=== PATIENT | male | born 1970 | race Hispanic/Latino ===

== ENCOUNTER 2018-11-03 17:12 | Emergency (ER) | payer OTHER ==
[2018-11-03] MEDS ORDERED: CATAPRES PO ONE (18:50)
--- NOTE | 2018-11-03 19:00 | Emergency Department Report ---
ED General Adult HPI - General Chief complaint: Extremity Injury, Lower Stated complaint: TOE PAIN Time Seen by Provider: 11/03/18 18:17 Source: patient Mode of arrival: Ambulatory Limitations: No Limitations - History of Present Illness Initial comments: Patient is 48 years old male with history of borderline hypertension per patient report. Patient stated that he smashed his left face to with the door and complaining of pain since then. Patient found to have a blood pressure of 233/146. Patient currently denying any headache, chest pain, weakness numbness or tingling sensation. Severity scale (0 -10): 8 - Related Data Home Medications Medication Instructions Recorded Confirmed Last Taken Dapsone 20 mg PO BID 11/03/18 11/03/18 Unknown Omeprazole 20 mg PO DAILY 11/03/18 11/03/18 Unknown Allergies Allergy/AdvReac Type Severity Reaction Status Date / Time Penicillins Allergy Unknown Verified 11/03/18 19:04 ED Review of Systems ROS: Stated complaint: TOE PAIN Other details as noted in HPI Comment: All other systems reviewed and negative Constitutional: denies: chills, fever Respiratory: denies: cough, orthopnea, shortness of breath, SOB with exertion, SOB at rest, wheezing Cardiovascular: denies: chest pain, palpitations, dyspnea on exertion, orthopnea Gastrointestinal: denies: abdominal pain, nausea, vomiting, diarrhea, constipation, hematemesis, melena, hematochezia Genitourinary: denies: urgency, dysuria, frequency, hematuria, discharge Neurological: denies: headache, weakness, numbness, paresthesias, confusion ED Past Medical Hx - Past Medical History Previous Medical History?: No - Surgical History Past Surgical History?: Yes Hx Cholecystectomy: Yes Additional Surgical History: hernia surgery - Social History Smoking Status: Never Smoker Substance Use Type: None - Medications Home Medications: Home Medications Medication Instructions Recorded Confirmed Last Taken Type Dapsone 20 mg PO BID 11/03/18 11/03/18 Unknown History Omeprazole 20 mg PO DAILY 11/03/18 11/03/18 Unknown History ED Physical Exam - General Limitations: No Limitations General appearance: alert, in no apparent distress - Head Head exam: Present: atraumatic, normocephalic, normal inspection - Eye Eye exam: Present: normal appearance, PERRL - ENT ENT exam: Present: normal exam, normal orophraynx, mucous membranes moist - Neck Neck exam: Present: normal inspection, full ROM. Absent: tenderness, meningism us, lymphadenopathy, thyromegaly - Respiratory Respiratory exam: Present: normal lung sounds bilaterally - Cardiovascular Cardiovascular Exam: Present: regular rate, normal rhythm, normal heart sounds - GI/Abdominal GI/Abdominal exam: Present: soft. Absent: distended, tenderness, guarding, rebound, bruit, pulsatile mass - Expanded Lower Extremity Exam Left Foot/Toe exam: Present: tenderness (left fifth toe), ecchymosis. Absent: abrasion, laceration, deformity - Back Exam Back exam: Present: normal inspection, full ROM - Neurological Exam Neurological exam: Present: alert, oriented X3, CN II-XII intact, normal gait, reflexes normal - Psychiatric Psychiatric exam: Present: normal mood - Skin Skin exam: Present: warm, intact, normal color ED Course Vital Signs 11/03/18 11/03/18 11/03/18 18:47 19:15 19:30 Temperature 98.6 F 97.9 F Pulse Rate 98 H 90 81 Respiratory 16 14 7 L Rate Blood Pressure 233/145 195/117 Blood Pressure 219/114 [Left] O2 Sat by Pulse 100 98 97 Oximetry 11/03/18 20:00 Temperature Pulse Rate 86 Respiratory 11 L Rate Blood Pressure 156/106 Blood Pressure [Left] O2 Sat by Pulse 95 Oximetry - Orthopedic Splinting/Casting Injury #1 Side: left Lower Extremity Injury Location: foot Lower Extremity Immobilizer: post-op shoe ED Medical Decision Making - Lab Data Result diagrams: 11/03/18 18:35 11/03/18 18:35 - Radiology Data Radiology results: image reviewed Left fifth mid shaft metatarsal fracture. - Medical Decision Making Patient's blood pressure improved significantly. Patient blood pressure now is 153/101. I will start patient on lisinopril 20 mg and hydrochlorothiazide 25 mg by mouth and advised the patient follow with his primary care physician in the next 2-3 days. Critical care attestation.: If time is entered above; I have spent that time in minutes in the direct care of this critically ill patient, excluding procedure time. ED Disposition Clinical Impression: Malignant hypertension, Metatarsal stress fracture of left foot Disposition: - TO HOME OR SELFCARE Is pt being admited?: No Condition: Stable Instructions: Hypertension (ED), Foot Fracture in Adults (ED) Referrals: OBIEKWE,ONWURA, MD [Primary Care Provider] - 3-5 Days BAYLEE WALDROP MD [Staff Physician] - 3-5 Days
[2018-11-03 19:08] LABS: Basophils # (Auto) 0.1 K/mm3 (0.0-0.1); Basophils % (Auto) 1.2 % (0.0-1.8); Eosinophils # (Auto) 0.2 K/mm3 (0.0-0.4); Eosinophils % (Auto) 2.3 % (0.0-4.3); Hematocrit 41.5 % (35.5-45.6); Hemoglobin 13.8 gm/dl (11.8-15.2); Lymphocytes # (Auto) 1.8 K/mm3 (1.2-5.4); Lymphocytes % (Auto) 26.2 % (13.4-35.0); Mean Corpuscular HGB Conc 33 % (32-34); Mean Corpuscular Volume 76 fl (84-94); Monocytes # (Auto) 0.7 K/mm3 (0.0-0.8); Monocytes % (Auto) 10.6 % (0.0-7.3); Platelet Count 273 K/mm3 (140-440); Red Cell Distribution Width 18.1 % (13.2-15.2)
[2018-11-03 19:19] LABS: BUN/Creatinine Ratio 16; Blood Urea Nitrogen 18 mg/dL (9-20); Calcium 9.2 mg/dL (8.4-10.2); Hemolysis Index 5
[2018-11-03 20:44] VITALS: BP 143/89
--- NOTE | 2018-11-03 21:24 | XRay Report ---
FINAL REPORT EXAM: XRAY TOE LEFT 5TH TOE HISTORY: left 5th toe injury TECHNIQUE: Left foot three views PRIORS: None. FINDINGS: There is an acute traumatic oblique fracture through the distal aspect proximal phalanx of the 5th to e with mild displacement and angulation. Articular surface appears intact. No radiopaque foreign bodi es are observed. Remaining bony structures are unremarkable. IMPRESSION: Acute fracture proximal phalanx 5th toe
== END 2018-11-03 20:47 | disposition home or self-care (01) ==
LOC: ED 17:12
DX: S90.122A Contusion of left lesser toe(s) without damage to nail, initial encounter (principal); I10 Essential (primary) hypertension; Z88.0 Allergy status to penicillin; Z90.49 Acquired absence of other specified parts of digestive tract; W23.1XXA Caught, crushed, jammed, or pinched between stationary objects, initial encounter; Y93.89 Activity, other specified; Y92.89 Other specified places as the place of occurrence of the external cause; Y99.8 Other external cause status
CPT/HCPCS: 36415; 80048; 85025; 99284